=== PATIENT | male | born 2000 | race Two or more races ===

== ENCOUNTER 2021-05-11 08:38 | Emergency (ER) | payer OTHER ==
[~2021-05-11] VITALS: Ht 177.8 cm; Wt 79.4 kg
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
--- NOTE | 2021-05-11 09:36 | NUR ---
PT REFUSED CT HEAD. DR DIAZ AWARE
--- NOTE | 2021-05-11 10:55 | NUR ---
Patient discharged in stable condition with [employer] officers. Written and verbal after care instructions given. Patient and officers verbalizes understanding of instruction.
[2021-05-11 11:07] VITALS: BP 153/90
== END 2021-05-11 11:07 ==
LOC: ER 08:40
DX: S01.111A Laceration without foreign body of right eyelid and periocular area, initial encounter (principal); Y08.89XA Assault by other specified means, initial encounter; Y93.89 Activity, other specified; Y92.89 Other specified places as the place of occurrence of the external cause; Y99.8 Other external cause status
CPT/HCPCS: 12011; 99283; A6403 ×2